=== PATIENT | female | born 1945 | race Caucasian/White ===

== ENCOUNTER 2023-11-02 00:14 | Emergency (ER) | payer MEDICARE, BC, SELFPAY ==
[2023-11-02 00:17] VITALS: BP 208/100
--- NOTE | 2023-11-02 00:29 | ED.MUSCINJ ---
Addendum entered and electronically signed by SINDY Abbasi 11/09/23 01:13:
[place] splint was applied.
Original Note:
HPI-Injury
General
Chief Complaint: Musculo-Skeletal Complaint
Source: patient
Exam Limitations: none
Time Seen by Provider: 11/02/23 00:22
Travel History
Have you had any contact with someone who has COVID-19?: No
Do you have any symptoms of coronavirus? Fever > 100 degrees, chills, cough, shortness of breath, sore throat, loss of taste or smell, muscle aches, or headache?: No
History of Present Illness-Injury
Is this injury a work related problem?: No
Is pt an associate of [facility]?: No
Initial Injury comments:
This is a 77 year old female that comes in with c/o left hand and wrist pain. States that she was doing laundry and she was hanging things up. States that she turned and lost her balance and fell on the left sided. States that she got up right away
and she did not have any pain in her hand. Then later her hand started to hurt. State that she hit her head lightly and there was no LOC. States that she is not on any blood thinners but then states that she takes fish oil. Denies any fever, chills,
nausea, vomiting, diarrhea, headache, dizziness.
Past History
Past History
ED Past Medical History: Asthma, Cancer (Skin CA), HTN, Hypercholesterolemia, Hypothyroidism and Other (TBI, Headaches, Gait dysfunction)
ED Past Surgical History: Gynecological (Tubal), Orthopedic (Shoulder surgery) and Tonsilectomy
Social History
Tobacco: Non-smoker
Alcohol: None
Personal:
Living: alone
Review of Systems
Review of Systems
All Other Systems: ROS reviewed and negative except as documented in HPI and ROS
Constitutional: Reports no symptoms; Denies fever or chills
EENT: Reports no symptoms
Respiratory: Reports no symptoms; Denies cough or trouble breathing
Cardiac: Reports no symptoms; Denies chest pain
ABD/GI: Reports no symptoms; Denies abdominal pain, nausea, vomiting or diarrhea
: Reports no symptoms; Denies dysuria, frequency or urgency
Musculoskeletal: Reports other (Left hand and wrist)
Skin: Reports no symptoms
Neurological: Reports no symptoms; Denies dizzy or headache
Psychiatric: Reports no symptoms
Musculoskeletal Injury Exam
Musculoskeletal Injury Exam
Left Wrist:
Pain with Movement?: Moderate
Tender to palpation?: Moderate
Soft tissue swelling?: Mild
External deformity and angulation?: None
Joint effusion?: None
Contusion?: None
Hematoma-local bleeding into tissue?: None
Strain- Sprain- Tear (Connective tissue injury)?: None
Crepitus with movement?: No
Joint instability?: No
Malalignment/deformity?: No
Range of motion: Limited (Due to pain)
Distal skin color and temperature: normal-warm & good color
Capillary Refill: normal
Normal distal neurovascular exam?: Yes
Phy Exam
General Physical Exam
General Presentation: mild distress
General age: appears stated age
General Skin: warm and dry
General Habitus: elderly
General Mental: alert
General Hydration: appears well hydrated
ENT Exam
ENT Exam: TM's normal, pharynx normal and neck supple
Eye Exam
Eye Exam: EOMI
Cardiovascular Exam
Cardiovascular Exam: regular rate/rhythm and normal peripheral pulses
Musculoskeletal Exam
Musculoskeletal Exam: other (Left wrist tenderness into hand with mild swelling. Discomfort into the fingers)
Skin Exam
Skin Exam: normal color, warm/dry, no rash and no petechia
Psychiatric Exam
Psychiatric Exam: normal mood/affect
Injury Course
Orders/Labs/Results
Orders:
Orders
11/02/23 00:20
Hand, Left 3 View [CR Hand - Left Min 3 Views] Urgent
Comment:
Reason For Exam: FALL
11/02/23 00:28
CR Wrist - Left Min 3 Views Urgent
Comment:
Reason For Exam: Fall, Pain
11/02/23 00:31
Acetaminophen [Tylenol] 1,000 mg PO NOW STA
MDM/Problems Addressed
Differential Diagnosis Includes:
Wrist fracture, Metacarpal fractures,
MDM/Problems Addressed:
This is a 78 year old female that comes in with c/o fall. States that she lost her balance when she tired as she was hanging up Laundry.
Will get X-ray of the hand and wrist.
Chronic conditions affecting care:
NA
Acute Exacerbation and/or Progression of Chronic Illness:
NA
*Radiology
Radiology exam reviewed: preliminary read by ED provider (left hand- Negative for fracture or dislocation. Left wrist- Negative for any fractures. )
*Pulse Oximetry
Patient hypoxic: no
*EKG
Interpreted by ED Provider?: NA
Rate: EKG- N/A
*Macroeconomics Professor Interpretation
Rate: Macroeconomics Professor- N/A
*Critical Care Note
Total Time (30-74mins, 75-104mins- exclusive of procedures): Not Applicable
ED Attending Note
-
Portions of this chart may have been created with voice recognition software.� Occasional wrong word or��sound alike� substitutions may have occurred due to the inherent limitations of voice recognition software.
Discharge Plan
Departure
Patient Disposition: Home (Routine Discharge)
Date of Disposition: 11/02/23
Time of Disposition: 01:02
Patient with high blood pressure during this ER visit?: Yes
Condition: Good
Covid-19: Not Applicable
Discharge Problem:
Hand sprain, Left wrist sprain
Instructions: Sprain (DC), BLOOD PRESSURE
Referrals:
Murali Huang MD [Family Provider] - Call in 1-3 days for appt
Activity Restrictions/Additional Instructions:
As discussed, your X-ray is negative for any fractures. Please use your Splint to help give your hand support until you can move the hand with limited discomfort. You may use Tylenol 1000mg every 6 hours for pain abnd Ibuprofen 600mg every 6 hours
with food for pain. Ice for the next 24 hours. Follow up with the family doctor. IF YOU HAVE ANY OTHER CONCERNS PLEASE RETURN TO THE EMERGENCY ROOM.
Interventions
Interventions:
*Risk Screen - Suicide Last Done: 11/02/23 00:17
*Neglect/Abuse Screening Last Done: 11/02/23 00:17
ED- Fall Risk Assessment Last Done: 11/02/23 00:30
ED-Musculoskeletal Assessment Last Done: 11/02/23 00:30
[2023-11-02] MEDS: TYLENOL 1000 MG PO (00:36)
--- NOTE | 2023-11-02 04:18 | DOWNTIME ---
There was a [employer] Client Director Immunology Downtime on 11/02/2023 from 0111 to 11/02/2023 at 0405. Downtime documentation of patient's care, including medication administrations, has been reconciled in the electronic record per guidelines. Refer to the
patient's paper chart under the miscellaneous tab to see printed paper medication records and downtime forms.
== END 2023-11-02 01:36 | disposition home or self-care (01) ==
LOC: EMR 00:14
PROVIDERS: EMERGENCY PHYSICIAN Emergency Medicine; FAMILY PHYSICIAN Internal Medicine
DX: S63.502A Unspecified sprain of left wrist, initial encounter (principal); S63.92XA Sprain of unspecified part of left wrist and hand, initial encounter; W19.XXXA Unspecified fall, initial encounter; I10 Essential (primary) hypertension
CPT/HCPCS: 99283; 29125; 73110; 73130

== ENCOUNTER 2024-01-19 20:00 | Emergency (ER) | payer MEDICARE, BC, SELFPAY ==
[2024-01-19 20:15] VITALS: BP 156/78
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
== END 2024-01-19 23:37 | disposition home or self-care (01) ==
LOC: EMR 20:00
PROVIDERS: EMERGENCY PHYSICIAN Emergency Medicine; FAMILY PHYSICIAN Internal Medicine
DX: M25.572 Pain in left ankle and joints of left foot (principal); I10 Essential (primary) hypertension; E78.00 Pure hypercholesterolemia, unspecified; E03.9 Hypothyroidism, unspecified; J45.909 Unspecified asthma, uncomplicated; Z85.828 Personal history of other malignant neoplasm of skin; Z87.820 Personal history of traumatic brain injury
CPT/HCPCS: 99283; 73564; 73630

== ENCOUNTER 2024-03-09 19:27 | Emergency (ER) | payer MEDICARE, BC, SELFPAY ==
[2024-03-09 19:29] VITALS: BP 167/82
[2024-03-09 19:31] VITALS: BP 167/82; BMI 31.9
[2024-03-09 19:41] LABS: % Basophils 0.5 % (0-2); % Eosinophils 1.9 % (0-6); % Immature Granulocytes 0.2 % (0-0.5); % Lymphocytes 21.4 % (20.5-51.1); % Monocytes 5.5 % (1.7-9.3); % Neutrophils 70.5 % (42.2-75.2); Absolute Eosinophils 0.2 10^3/uL (0-0.7); Absolute Lymphocytes 1.8 10^3/uL (1.2-3.4); Absolute Monocytes 0.5 10^3/uL (0.1-0.6); Absolute Neutrophils 5.9 10^3/uL (1.4-6.5); Hematocrit 38.7 % (37.0-47.0); Hemoglobin 13.1 g/dL (12.0-16.0); Mean Corp Hgb Conc. 33.9 g/dL (33.0-37.0); Mean Corpuscular Hgb 29.5 pg (27.0-31.0); Mean Corpuscular Volume 87.2 fL (81.0-99.0); Mean Platelet Volume 9.2 fL (7.4-10.4); Nucleated Red Blood Cells % 0 %; Platelet Count 259 10^3/uL (130-400); Red Blood Cell Count 4.44 10^6/uL (4.20-5.40); Red Cell Dist. Width 13.1 % (11.5-14.5); White Blood Cell Count 8.4 10^3/uL (4.8-10.8)
[2024-03-09 20:00] VITALS: BP 150/66
[2024-03-09 20:11] LABS: ALT (SGPT) 16 U/L (0-35); AST (SGOT) 23 U/L (14-36); Albumin 4.1 g/dl (3.5-5.0); Alkaline Phosphatase 93 U/L (38-126); Blood Urea Nitrogen 29 mg/dl (7-17); Calcium 9.4 mg/dl (8.4-10.2); Carbon Dioxide 26 mmol/L (22-30); Chloride 103 mmol/L (98-107); Estimated Creatinine Clearance 64 ml/min; Glucose 151 mg/dl (70-99); Lipase 66 U/L (23-300); Potassium 4.3 mmol/L (3.5-5.1); Sodium 136 mmol/L (135-145); Total Bilirubin 1.3 mg/dl (0.2-1.3); Total Protein 6.7 g/dl (6.3-8.2); eGFR > 60.00
[2024-03-09 21:00] VITALS: BP 147/60
[2024-03-09] MEDS: NSS 1000 IV (21:20)
--- NOTE | 2024-03-09 21:27 | EDRN ---
Updated patient and family on results and delay, patient has not thrown up since she has been here, reports being slightly dizzy still, VSS
[2024-03-09 22:00] VITALS: BP 161/69
[2024-03-09] MEDS: VALIUM INJECTION 2 MG IV (22:47)
[2024-03-09] MEDS: ZOFRAN 4 MG IV (22:48)
[2024-03-09 23:00] VITALS: BP 126/56
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
--- NOTE | 2024-03-10 00:09 | EDRN ---
Patient feeling better and will be discharged home.
== END 2024-03-10 00:13 | disposition home or self-care (01) ==
LOC: EMR 19:27
PROVIDERS: EMERGENCY PHYSICIAN Emergency Medicine
DX: R42 Dizziness and giddiness (principal); R11.10 Vomiting, unspecified; I10 Essential (primary) hypertension; J45.909 Unspecified asthma, uncomplicated; E78.00 Pure hypercholesterolemia, unspecified; E03.9 Hypothyroidism, unspecified; Z85.828 Personal history of other malignant neoplasm of skin; Z87.820 Personal history of traumatic brain injury
CPT/HCPCS: 99284; 96374; 96375; 96361; 80053; 83690; 85025; 93005

== ENCOUNTER → 2024-06-09 14:03 | Outpatient (REF) | payer MEDICARE, BC, SELFPAY | LOC: WDC 14:03 | PROVIDERS: ATTENDING PHYSICIAN Internal Medicine | DX: Z12.31 Encounter for screening mammogram for malignant neoplasm of breast (principal) | CPT/HCPCS: 77063; 77067 ==

== ENCOUNTER 2025-07-22 10:32 | Inpatient (IN) | payer MEDICARE, BC, SELFPAY ==
--- NOTE | 2025-07-01 14:21 | CM ---
Demographics: confirmed
Living situation: lives alone,
Support Person Post Operatively: Son and Son's girlfriend Marilyn
History of
VN: No
SNF: No
Outpatient: appointments made at [facility]
Has patient purchased required equipment: yes, walker, cane raised toilet seat
PCP: Sal
Pharmacy: [facility]
Post Operative Discharge Plan: Home with family, outpatient PT.
[2025-07-10 10:48] LABS: Hematocrit 41.4 % (37.0-47.0); Hemoglobin 13.6 g/dL (12.0-16.0); Mean Corp Hgb Conc. 32.9 g/dL (33.0-37.0); Mean Corpuscular Volume 90.6 fL (81.0-99.0); Platelet Count 231 10^3/uL (130-400); Red Cell Dist. Width 13.1 % (11.5-14.5)
[2025-07-10 11:17] LABS: ALT (SGPT) 17 U/L (0-35); AST (SGOT) 20 U/L (14-36); Albumin 4.2 g/dl (3.5-5.0); Alkaline Phosphatase 71 U/L (38-126); Blood Urea Nitrogen 16 mg/dl (7-17); Calcium 9.4 mg/dl (8.4-10.2); Carbon Dioxide 33 mmol/L (22-30); Chloride 104 mmol/L (98-107); Glucose 101 mg/dl (70-99); Potassium 4.2 mmol/L (3.5-5.1); Sodium 141 mmol/L (135-145); Total Protein 7.0 g/dl (6.3-8.2); eGFR > 60.00
[2025-07-10 12:08] LABS: Glycohemoglobin (HgbA1c) 5.6 % (4.0-5.9)
[2025-07-10 14:02] VITALS: BMI 35.0
[2025-07-10 14:57] VITALS: BMI 35.0
[2025-07-22] VITALS (14 sets, daily range): BP systolic 114–144; BP diastolic 50–100
[2025-07-22] MEDS: CELEBREX 200 MG PO (11:16)
[2025-07-22] MEDS: BACTROBAN NASAL 1 GRAM NASAL (11:16)
[2025-07-22] MEDS: TYLENOL 650 MG PO ×2 (11:16→17:28)
[2025-07-22] MEDS: NORMOSOL-R/PLASMALYTE-A 1000 IV ×2 (11:17→19:54)
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
[2025-07-22] MEDS: ROXICODONE 5 MG PO (17:28)
--- NOTE | 2025-07-22 18:42 | PTCARENOTE ---
Received patient from PACU via bed around 1814 in stable condition. Left knee dressing intact with scant drainage. Patient oriented to room. Call patterson in reach.
[2025-07-22] MEDS: FLORASTOR 250 MG PO (19:49)
[2025-07-22] MEDS: INDERAL 80 MG PO (19:53)
[2025-07-22] MEDS: COLACE 100 MG PO (19:54)
[2025-07-22] MEDS: SENOKOT 17.2 MG PO (19:54)
[2025-07-22] MEDS: ASPIRIN 325 MG PO (19:54)
[2025-07-22] MEDS: DECADRON 4 MG PO (19:54)
[2025-07-22] MEDS: CRESTOR 5 MG PO (19:54)
[2025-07-22] MEDS: TYLENOL PO ×2 (20:10→23:43)
[2025-07-22] MEDS: BACTROBAN 2% OINTMENT 1 APPLIC NASAL (21:00)
[2025-07-22] MEDS: ZOFRAN 4 MG IV (21:02)
[2025-07-22] MEDS: ANCEF 5 IV (21:02)
[2025-07-23 02:48] VITALS: BP 128/64
[2025-07-23] MEDS: TYLENOL 650 MG PO ×3 (05:00→12:38)
[2025-07-23] MEDS: ANCEF 5 IV (05:09)
[2025-07-23] MEDS: SYNTHROID 25 MCG PO (05:11)
[2025-07-23 07:34] VITALS: BP 128/51
[2025-07-23 08:55] VITALS: BP 139/64; PULSE 71
[2025-07-23] MEDS: FLORASTOR 250 MG PO (09:09)
[2025-07-23] MEDS: SENOKOT 17.2 MG PO (09:09)
[2025-07-23] MEDS: ASPIRIN 325 MG PO (09:09)
[2025-07-23] MEDS: DECADRON 4 MG PO (09:09)
[2025-07-23] MEDS: CLARITIN 10 MG PO (09:10)
[2025-07-23] MEDS: INDERAL 80 MG PO (09:10)
[2025-07-23] MEDS: COLACE 100 MG PO (09:10)
[2025-07-23] MEDS: BACTROBAN 2% OINTMENT 1 APPLIC NASAL (09:11)
--- NOTE | 2025-07-23 09:34 | CM ---
CM met with patient in room. PT/OT recommended VN. CM updated [facility] Admission RN. Patient confirmed that her son's girlfriend will stay with her 'as long as she needs'.
PLAN: home with family and [facility].
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
--- NOTE | 2025-07-23 10:00 | W.DS.TRANS ---
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
-
Discharge Instructions:
Sleep Apnea Risk High
Discharge Diagnosis/Procedures L knee OA s/p L TKA w/ Dr Perez 07/22/25
Diet Regular
Additional Diets Adequate hydration, minimize opioids, and wear
TEDs stockings to prevent low blood pressure/
dizziness.
Activity With assistance, As tolerated, With Walker
Driving Restrictions Not until seen by your Dr
Bathing Restrictions OK to Shower
Other Services PT
Wound Care Dressing to be removed 1 week post-surgery.
Woodward to be removed at 2 week follow-up with
surgeon's office.
Instructions:
Stand-Alone Forms: Total Hip/Knee Replacement D/C
Changes to Home Medications: Yes
Discharge Medications:
DC Medications w/original date entered in [facility]
Fish Oil 1 cap PO TID Supplement 07/08/25
Held on 07/23/25. Instructions: Resume on 07/29/25.
calcium 600 mg (as carbonate)-vit D3 20 mcg (800 unit) chewable tablet (Caltrate plus D) 1 tab PO BID Supplement 07/08/25
desloratadine 5 mg tablet 10 mg PO BID Allergies 07/08/25
levothyroxine 25 mcg tablet 12.5 mcg PO MOWETHSA Thyroid 07/08/25
levothyroxine 25 mcg tablet 25 mcg PO DAILY Thyroid 07/08/25
montelukast 10 mg tablet 10 mg PO HS ALLERGY/ASTHMA 07/08/25
ksdsltdwdmfn-plwzmakv-ppukgv tablet 1 tab PO .AFTER LUNCH Supplement 07/08/25
propranolol 80 mg tablet 80 mg PO BID Blood Pressure 07/08/25
rosuvastatin 10 mg tablet 5 mg PO QPM High Cholesterol 07/08/25
mupirocin 2 % topical ointment 1 applic intranasal BID #1 tube 07/10/25
cefadroxil 500 mg capsule 500 mg PO DAILY #7 caps 07/16/25
dexamethasone 4 mg tablet 4 mg PO BID Anti-inflammatory #5 tabs 07/16/25
famotidine 20 mg tablet (Pepcid) 20 mg PO HS #30 tabs 07/16/25
gabapentin 300 mg capsule 300 mg PO HS neuropathic pain/sleep #10 caps 07/16/25
Saccharomyces boulardii 250 mg capsule 250 mg PO DAILY #7 caps 07/23/25
acetaminophen 500 mg tablet (Acetaminophen Extra Strength) 1,000 mg (2 x 500 mg) PO Q6H #60 tabs 07/23/25
aspirin 325 mg tablet 325 mg PO DAILY #30 tabs 07/23/25
docusate sodium 100 mg capsule 100 mg PO BID #30 caps 07/23/25
magnesium hydroxide 400 mg/5 mL oral suspension (Milk of Magnesia) 30 ml PO HS PRN constipation #3,780 mL 07/23/25
ondansetron HCl 4 mg tablet 4 mg PO Q6H PRN nausea and vomiting #30 tabs 07/23/25
sennosides 8.6 mg tablet (Janice-alka) 17.2 mg (2 x 8.6 mg) PO BID #30 tabs 07/23/25
tramadol 50 mg tablet 50 - 100 mg (1 - 2 x 50 mg) PO Q6H PRN moderate-severe pain #30 tabs 07/23/25
Home Medication Changes
cefadroxil 500 mg capsule 500 mg PO DAILY #7 caps 07/16/25
dexamethasone 4 mg tablet 4 mg PO BID Anti-inflammatory #5 tabs 07/16/25
famotidine 20 mg tablet (Pepcid) 20 mg PO HS #30 tabs 07/16/25
gabapentin 300 mg capsule 300 mg PO HS neuropathic pain/sleep #10 caps 07/16/25
Saccharomyces boulardii 250 mg capsule 250 mg PO DAILY #7 caps 07/23/25
acetaminophen 500 mg tablet (Acetaminophen Extra Strength) 1,000 mg (2 x 500 mg) PO Q6H #60 tabs 07/23/25
aspirin 325 mg tablet 325 mg PO DAILY #30 tabs 07/23/25
docusate sodium 100 mg capsule 100 mg PO BID #30 caps 07/23/25
magnesium hydroxide 400 mg/5 mL oral suspension (Milk of Magnesia) 30 ml PO HS PRN constipation #3,780 mL 07/23/25
ondansetron HCl 4 mg tablet 4 mg PO Q6H PRN nausea and vomiting #30 tabs 07/23/25
sennosides 8.6 mg tablet (Janice-alka) 17.2 mg (2 x 8.6 mg) PO BID #30 tabs 07/23/25
tramadol 50 mg tablet 50 - 100 mg (1 - 2 x 50 mg) PO Q6H PRN moderate-severe pain #30 tabs 07/23/25
Pending Results: No
--- NOTE | 2025-07-23 10:01 | SLEEP.APNEA ---
Sleep Apnea Order
-
Patient screened as High Risk for Sleep Apnea on Stop Bang Questionnaire. Patient referred to [facility] for Pre-Study.

Name: REJI VALENCIA
: 1945
Home Phone: Use [email or web address] instead
Cell Phone: [f_Reg Other Phone]
Work Phone:
Address: [place] [address]
City: [place]
State: [place]
Zip: [f_[facility] Zip]
Family Physician: Murali Huang
Height 5 ft 6 in
Actual Weight 98.2 kg
Body Mass Index (BMI) 35.0
Ordering Provider: Thao Crawford PA-C
[2025-07-23] MEDS: ZOFRAN 4 MG IV (10:24)
[2025-07-23] MEDS: ULTRAM 50 MG PO (10:24)
--- NOTE | 2025-07-23 10:55 | VNURNOTE ---
Home Health Liaison met with patient at bedside to discuss [facility] nurse/therapy, visits, schedule and homebound status. Patient is agreeable and understands that visits at home will be 2-3 x per week to assess and teach medical management.
Patient is aware that [facility] will contact them for start of care within a week after discharge from . Provided contact number for [facility].
[facility] referral completed in [facility].
[2025-07-23 11:30] VITALS: BP 120/54
== END 2025-07-23 14:15 | disposition home health service (06) | DRG 470 ==
LOC: 2 SOUTH 10:32
PROVIDERS: ADMITTING PHYSICIAN Specialist; FAMILY PHYSICIAN Internal Medicine
PROC: 0SRD0J9 Replacement of Left Knee Joint with Synthetic Substitute, Cemented, Open Approach (ICD-10-PCS; 2025-07-22)
DX: M17.12 Unilateral primary osteoarthritis, left knee (principal); G81.94 Hemiplegia, unspecified affecting left nondominant side; E66.9 Obesity, unspecified; Z68.35 Body mass index [BMI] 35.0-35.9, adult; E03.9 Hypothyroidism, unspecified; G43.909 Migraine, unspecified, not intractable, without status migrainosus; G47.33 Obstructive sleep apnea (adult) (pediatric); N18.9 Chronic kidney disease, unspecified; I12.9 Hypertensive chronic kidney disease with stage 1 through stage 4 chronic kidney disease, or unspecified chronic kidney disease; E78.5 Hyperlipidemia, unspecified; J44.89 Other specified chronic obstructive pulmonary disease; Z85.828 Personal history of other malignant neoplasm of skin; Z96.612 Presence of left artificial shoulder joint; Z96.652 Presence of left artificial knee joint; Z98.41 Cataract extraction status, right eye; Z98.42 Cataract extraction status, left eye
CPT/HCPCS: 36415; 73560; 80053; 83036; 85027; 87070; 97116; 97162; 97166; 97530; 97535; C1713; C1776